=== PATIENT | male | born 1960 | race Caucasian/White ===

== ENCOUNTER 2017-08-30 19:59 | Emergency (ER) | payer BC ==
[~2017-08-30] VITALS: Ht 172.7 cm; Wt 93.2 kg
[2017-08-30 20:13] VITALS: Ht 172.7 cm; Wt 93.2 kg
[2017-08-30] MEDS ORDERED: ELIQUIS5 MG (20:15)
[2017-08-30] MEDS ORDERED: LISINOPRIL2.5 MG (20:15)
[2017-08-30] MEDS ORDERED: LIPITOR20 MG (20:15)
[2017-08-30 20:38] LABS: APPEARANCE CLEAR (CLEAR); BILIRUBIN NEGATIVE (NEGATIVE); COLOR YELLOW (YELLOW); GLUCOSE NEGATIVE (NEGATIVE); KETONE NEGATIVE (NEGATIVE); NITRITE NEGATIVE (NEGATIVE); PROTEIN TRACE mg/dL (NEGATIVE); SPECIFIC GRAVITY 1.025 (1.005-1.020); UROBILINOGEN NORMAL (NORMAL)
[2017-08-30 20:51] LABS: BASOPHILS 0.1 % (0-2); EOSINOPHILS 0.2 % (0-7); HEMATOCRIT 40.6 % (42.0-54.0); HEMOGLOBIN 14.1 g/dL (13.5-17.5); IMMATURE GRANULOCYTES 0.2 % (0-5); LYMPHOCYTES 10.3 % (15-50); MCH 30.3 pg (26.0-34.0); MCHC 34.7 g/dL (31.0-37.0); MCV 87.3 fL (80.0-100.0); MEAN PLATELET VOLUME 12.1 fL (7.4-10.4); MONOCYTES 7.8 % (2-11); NEUTROPHILS 81.4 % (40-80); PLATELET COUNT 194 10x3/uL (130-400); RBC 4.65 10x6/uL (4.20-6.10); RDW 13.8 % (11.5-14.5); WBC 9.2 10x3/uL (4.8-10.8)
[2017-08-30 21:07] LABS: ALBUMIN 3.6 g/dL (3.4-5.0); ALKALINE PHOSPHATASE 99 U/L (46-116); ALT (SGPT) 61 U/L (10-68); AMYLASE - SERUM 84 U/L (25-115); BILIRUBIN - TOTAL 0.54 mg/dL (0.2-1.3); CALC OSMOLALITY 273 mosm/kg (275-300); CALCIUM 8.7 mg/dL (8.5-10.1); CARBON DIOXIDE 22.3 mmol/L (21.0-32.0); CHLORIDE - SERUM 102 mmol/L (98-107); GLUCOSE 119 mg/dL (74-106); LIPASE 190 U/L (73-393); PROTEIN - SERUM 7.2 g/dL (6.4-8.2); SODIUM 136 mmol/L (136-145); UREA NITROGEN 14 mg/dL (7-18); eGFR NON AFRICAN AMERICAN 82 mL/min (90-120)
[2017-08-30] MEDS ORDERED: TORADOL10 MG PO (22:23)
[2017-08-30 23:26] VITALS: BP 130/75
== END 2017-08-30 23:26 | disposition home or self-care (01) ==
LOC: D.ER 19:59
PROVIDERS: Family Medicine
DX: N20.0 Calculus of kidney (principal)